=== PATIENT | female | born 1955 | race African-American/Black ===

== ENCOUNTER 2017-08-26 05:14 | Emergency (ER) | payer MEDICAID ==
[~2017-08-26] VITALS: Ht 162.6 cm; Wt 74.0 kg
[2017-08-26] MEDS ORDERED: TORADOL (05:31)
[2017-08-26] MEDS ORDERED: PROM12.511 PO (05:31)
[2017-08-26 05:45] VITALS: BP 153/60
[2017-08-26] MEDS ORDERED: METHYLPREDNISOLONE SOD SUCC 125 MG/2 ML VIAL IM STA (07:11)
[2017-08-26] MEDS ORDERED: KETOROLAC 60MG/2ML VIAL IM ONE (07:15)
== END 2017-08-26 07:30 | disposition left against medical advice (07) ==
LOC: ER 05:14
DX: M25.562 Pain in left knee (principal); M25.561 Pain in right knee; K21.9 Gastro-esophageal reflux disease without esophagitis; E78.00 Pure hypercholesterolemia, unspecified; G20 Parkinson's disease; F17.210 Nicotine dependence, cigarettes, uncomplicated; Z90.49 Acquired absence of other specified parts of digestive tract; Z88.6 Allergy status to analgesic agent; Z88.8 Allergy status to other drugs, medicaments and biological substances
CPT/HCPCS: 99281